=== PATIENT | female | born 1945 | race Caucasian/White ===

== ENCOUNTER 2019-02-03 15:51 | Emergency (ER) | payer MEDICARE, OTHER ==
[2019-02-03 16:19] VITALS: BP 165/74
--- NOTE | 2019-02-03 16:41 | UC ---
Upper Extremity HPI - HPI Summary HPI Summary: Started w/ L thumb pain last night. tender to touch per pt. denies fever, or joint swelling. Of note did do some bathroom cleaning with bare hands a few days ago. - History of Current Complaint Chief Complaint: UCUpperExtremity Stated Complaint: SWOLLEN THUMB Time Seen by Provider: 02/03/19 16:16 Hx Obtained From: Patient ?: No Onset/Duration: Sudden Onset Pain Intensity: 6 Pain Scale Used: 0-10 Numeric Location Of Pain: Is Discrete @ - L thumb Character: Sharp Aggravating Factor(s): Other - touching Alleviating Factor(s): Nothing - Allergies/Home Medications Allergies/Adverse Reactions: Allergies Allergy/AdvReac Type Severity Reaction Status Date / Time Adhesive Tape Allergy Mild Blisters Verified 03/10/18 09:57 Gadolinium-Containing Allergy Itching Verified 02/03/19 16:26 Contrast Medi latex Allergy Blisters Verified 02/03/19 16:25 Sulfa (Sulfonamide Allergy Rash Verified 02/03/19 16:25 Antibiotics) Tape Allergy Mild Rash Uncoded 03/10/18 09:57 Home Medications: Home Medications Albuterol HFA INHALER* [Ventolin HFA Inhaler*] 1 puff INH Q4H PRN 02/03/19 [ History Confirmed 02/03/19] Beclomethasone 80 MCG MDI(NF) [Qvar 80 MCG MDI(NF)] 2 puff INH BID 02/03/19 [ History Confirmed 02/03/19] Triamcinolone 0.1% CREAM (NF) [Kenalog 0.1% Cream (NF)] 1 applic .SEE ORDER 06/17 [History Confirmed 02/03/19] PMH/Surg Hx/FS Hx/Imm Hx Previously Healthy: Yes Cardiovascular History: Hypertension - Surgical History Surgical History: Yes Surgery Procedure, Year, and Place: laminectomy low back. Knee surgery- meniscual tears. Rotator cuff surgery - Social History Alcohol Use: None Substance Use Type: None Smoking Status (MU): Never Smoked Tobacco Have You Smoked in the Last Year: No Review of Systems All Other Systems Reviewed And Are Negative: Yes Constitutional: Positive: Negative. Negative: Fever Skin: Positive: Other - + L thumb pad pain, severe tenderness, mild redness, minimal swelling.. Negative: Bruising Musculoskeletal: Negative: Arthralgia, Edema, Myalgia Physical Exam Triage Information Reviewed: Yes Appearance: Well-Appearing Vital Signs: Initial Vital Signs Temp 97.8 F 02/03/19 16:13 Pulse 63 02/03/19 16:13 Resp 18 02/03/19 16:13 BP 165/74 02/03/19 16:13 Pulse Ox 97 02/03/19 16:13 Vital Signs Reviewed: Yes Musculoskeletal: Positive: Other: - L thumb PIP NONTENDER but a lateral protuberance is noted. Landmarks are in place in entire hand. Finger pad on L thumb is severely tender but no open areas and minimal erythema. Diagnostics - Radiology No standard instances Radiology Interpretation Completed By: Radiologist Summary of Radiographic Findings: IMPRESSION: Degenerative changes of the interphalangeal joint of the left thumb. Abnormal erosions at the head of the first metacarpal. Upper Extremity Course/Dx - Course Course Of Treatment: L THUMB TENDERNESS that started last night. On exam Afebrile and no joint involvement. Likely early felon dx. will rx antibx but strongly encouraged pt to go to ED if worsening or swelling becomes evident. ON exam L thumb pad is moderately tender but PIP nontender w/ a chronic . blood pressure elevated and have asked her to f/u w/ pcp. - Differential Dx/Diagnosis Differential Diagnosis/HQI/PQRI: Bursitis, Other Provider Diagnosis: Felon of finger Discharge - Sign-Out/Discharge Documenting (check all that apply): Patient Departure All imaging exams completed and their final reports reviewed: Yes - Discharge Plan Condition: Good Disposition: HOME Prescriptions: Cephalexin CAP* [Keflex CAP*] 500 mg PO BID 10 Days #20 cap Patient Education Materials: Cellulitis (ED) Referrals: Audelia Garzon MD [Primary Care Provider] - Additional Instructions: Please follow up with your primary care provider for your blood pressure. - Billing Disposition and Condition Condition: GOOD Disposition: Home
== END 2019-02-03 17:49 | disposition home or self-care (01) ==
LOC: UCEAST 15:51
DX: L03.012 Cellulitis of left finger (principal); I10 Essential (primary) hypertension; Z91.09 Other allergy status, other than to drugs and biological substances; Z91.040 Latex allergy status; Z88.2 Allergy status to sulfonamides; Z91.041 Radiographic dye allergy status
CPT/HCPCS: 99202; G0463